=== PATIENT | male | born 1960 | race Caucasian/White ===

== ENCOUNTER → 2019-02-19 | Outpatient (CLI) | payer OTHER ==
--- NOTE | 2019-02-19 13:32 | US ---
EXAMINATION TYPE: US carotid duplex BILAT DATE OF EXAM: 02/19/2019 COMPARISON: NONE CLINICAL HISTORY: I10 HTN. Heart rate appears fast EXAM MEASUREMENTS: RIGHT: Peak Systolic Velocity (PSV) cm/sec ----- Right CCA: 103.1 ----- Right ICA: 87.8 ----- Right ECA: 162.9 ICA/CCA ratio: 0.8 RIGHT: End Diastole cm/sec ----- Right CCA: 43.5 ----- Right ICA: 38.3 ----- Right ECA: 58.4 LEFT: Peak Systolic Velocity (PSV) cm/sec ----- Left CCA: 86.3 ----- Left ICA: 91.0 ----- Left ECA: 81.1 ICA/CCA ratio: 1.1 LEFT: End Diastole cm/sec ----- Left CCA: 34.5 ----- Left ICA: 46.9 ----- Left ECA: 28.2 VERTEBRALS (direction of flow): Right Vertebral: Antegrade Left Vertebral: Antegrade Rhythm: Normal Grayscale images show moderate to severe eccentric plaque right carotid bulb level with more mild álvaro que left carotid bulb level. The velocity measurements and ratios remain within normal limits in the visualized portion of both internal carotid arteries. IMPRESSION: No hemodynamically significant stenosis is seen in either internal carotid artery. Criteria for Assigning % of Stenosis / Diameter reduction (Estimation based on the indirect measurements of the internal carotid artery velocities (ICA PSV). 1. Normal (no stenosis)=ICA PSV < 125 cm/s: ratio < 2.0: ICA EDV<40 cm/s. 2. Less than 50% stenosis=ICA PSV < 125 cm/s: ratio < 2.0: ICA EDV<40 cm/s. 3. 50 to 69% stenosis=ICA PSV of 125 to 230 cm/s: ration 2.0 ? 4.0: ICA EDV 40-100 cm/s. 4. Greater than 70% stenosis to near occlusion= ICA PSV > 230 cm/s: ratio > 4.0: ICA EDV > 100 cm/s. 5. Near occlusion= ICA PSV velocities may be low or undetectable: variable ratio and ICA EDV. 6. Total occlusion=unable to detect flow.
== END | disposition home or self-care (01) ==
LOC: RADUSWWP 12:52
PROVIDERS: ATTEND Family Medicine
DX: R09.89 Other specified symptoms and signs involving the circulatory and respiratory systems (principal); I10 Essential (primary) hypertension
CPT/HCPCS: 93880

== ENCOUNTER 2019-09-07 10:05 | Day surgery (SDC) | payer OTHER ==
[~2019-09-07 10:05] MED LIST: SODIUM CHLORIDE 0.9% 1,000 ML IV SCH
[2019-09-07 10:33] VITALS: TEMP 98
[2019-09-07 11:00] LABS: African American GFR (CKD) >90 (>60 ml/min/1.73 sqM); Anion Gap 9 mmol/L; Blood Urea Nitrogen 13 mg/dL (9-20); Calcium 9.4 mg/dL (8.4-10.2); Carbon Dioxide 24 mmol/L (22-30); Chloride 102 mmol/L (98-107); Glucose 99 mg/dL (74-99); Non-African American GFR(CKD) >90 (>60 ml/min/1.73 sqM); Potassium 4.7 mmol/L (3.5-5.1); Sodium 135 mmol/L (137-145)
[2019-09-07] MEDS ORDERED: LIDOCAINE 1% INJ 10MG/ML (20 ML MDV) ONE (11:22)
[2019-09-07] MEDS ORDERED: PROPOFOL 10 MG/ML 20 ML VIAL IV ONE (11:22)
[2019-09-07] MEDS ORDERED: GLYCOPYRROLATE 0.2 MG/ML 2 ML VIAL ONE (11:22)
[2019-09-07] MEDS ORDERED: SODIUM CHLORIDE 0.9% 50 ML IV ONE (11:33)
[2019-09-07 12:25] VITALS: RESP 16
--- NOTE | 2019-09-07 12:35 | ECHOT ---
TRANSESOPHAGEAL ECHOCARDIOGRAM FIRST PROCEDURE: Transesophageal echo. SECOND PROCEDURE: Cardioversion. INDICATION: Atypical atrial flutter. PROCEDURE NOTE: After obtaining informed consent, transesophageal echocardiogram was performed in left lateral position using an Omni plane probe. Local and IV sedation were obtained by the beer runner. FINDINGS: 1. There is no intracardiac thrombus within the left atrial appendage, left atrium, right atrium, right ventricle. 2. Mitral valve is anatomically normal. There is mild mitral regurgitation noted. 3. Interatrial septum, there is no evidence of wetw-tu-vkvfs shunt by color-flow Doppler or ntdyv-om-tsfv shunt by agitated saline contrast study. 4. Mitral valve shows mild mitral regurgitation. 5. Tricuspid valve shows mild tricuspid regurgitation. 6. Aortic valve is a 3-leaflet valve. There is no evidence of aortic stenosis or regurgitation. Aorta is free of aneurysm. 7. Right atrium and right ventricle seen within normal limits. CONCLUSION: No intracardiac thrombus. PLAN: Patient will undergo cardioversion. CARDIOVERSION NOTE: INDICATION: Atypical atrial flutter. PROCEDURE NOTE: After obtaining informed consent and making sure that the patient does not have intracardiac thrombus. The patient underwent electrical cardioversion with 200 joules of synchronized DC current. The patient converted to sinus rhythm following a single shock and remained in sinus rhythm. The plan at this stage is to stop the metoprolol that he is on and continue the amiodarone along with Eliquis. The patient will be followed up in my office in a week's time. MMODL / IJN: [id number] /
[2019-09-07 19:05] VITALS: BP 121/84; PULSE 70
[2019-09-07] MEDS ORDERED: APIXABAN 5 MG TAB PO SCH (21:00)
[2019-09-08] MEDS ORDERED: LISINOPRIL 20 MG TAB PO SCH (09:00)
[2019-09-08] MEDS ORDERED: ASPIRIN 81 MG PO SCH (09:00)
[2019-09-08] MEDS ORDERED: AMIODARONE 200 MG TAB PO SCH (09:00)
== END 2019-09-07 14:00 | disposition home or self-care (01) ==
LOC: CATHCVL 10:05
PROVIDERS: ATTEND Internal Medicine Cardiovascular Disease
DX: I48.4 Atypical atrial flutter (principal); I08.1 Rheumatic disorders of both mitral and tricuspid valves; I10 Essential (primary) hypertension; Z72.0 Tobacco use; Z79.01 Long term (current) use of anticoagulants; Z79.899 Other long term (current) drug therapy; Z82.49 Family history of ischemic heart disease and other diseases of the circulatory system
CPT/HCPCS: 93312; 93320; 93325; 92960; 80048; J2001; J2704

== ENCOUNTER 2020-01-10 17:40 | Inpatient (IN) | payer OTHER ==
[2020-01-10] MEDS ORDERED: DILTIAZEM DRIP BOLUS FROM BAG 1 MG SOLN IV ONE (17:50)
[2020-01-10] MEDS ORDERED: SODIUM CHLORIDE 0.9% 1,000 ML IV STA (17:50)
[2020-01-10 18:13] LABS: Basophils # (A) 0.1 k/uL (0-0.2); Basophils % (A) 1 %; Eosinophils # (A) 0.2 k/uL (0-0.7); Eosinophils % (A) 1 %; HCT 46.5 % (39.0-53.0); HGB 15.4 gm/dL (13.0-17.5); Lymphocytes # (A) 2.4 k/uL (1.0-4.8); Lymphocytes % (A) 20 %; MCH 34.1 pg (25.0-35.0); MCV 103.4 fL (80.0-100.0); Macrocytosis Slight; Mean Platelet Volume 7.6; Monocytes # (A) 0.9 k/uL (0-1.0); Monocytes % (A) 8 %; Neutrophils # (A) 7.9 k/uL (1.3-7.7); Neutrophils % (A) 68 %; Platelet Count 175 k/uL (150-450); RDW 12.5 % (11.5-15.5); WBC 11.7 k/uL (3.8-10.6)
--- NOTE | 2020-01-10 18:18 | ED ---
Chest Pain HPI - General Chief Complaint: Chest Pain Stated Complaint: Chest pain Time Seen by Provider: 01/10/20 17:49 Source: patient, RN notes reviewed, old records reviewed Mode of arrival: ambulatory Limitations: no limitations - History of Present Illness Initial Comments: This is a 51-year-old male DF for evaluation of chest pain left-sided chest pain feels like tightness in his chest is feeling of heart racing symptoms been going on for a few weeks to a few months. No travel history patient taking medication as directed he is on blood thinners currently. Patient has history of heart disease with stent placement has been taking all medications as prescribed MD Complaint: chest pain -: hour(s) Onset: during rest, during exertion Pain Location: substernal, left chest Pain Radiation: none Severity: moderate Severity scale (1-10): 6 Quality: tightness Consistency: constant Improves With: nothing Worsens With: nothing Context: other (Recent diagnosis of atrial fibrillation) Anginal Symptoms: dyspnea Other Symptoms: palpitations Treatments Prior to Arrival: none - Related Data Home Medications Medication Instructions Recorded Confirmed Lisinopril 40 mg PO DAILY 08/01/14 01/10/20 Apixaban [Eliquis] 5 mg PO BID 09/07/19 01/10/20 Atorvastatin [Lipitor] 40 mg PO DAILY 01/10/20 01/10/20 Metoprolol Tartrate [Lopressor] 50 mg PO BID 01/10/20 01/10/20 Allergies Allergy/AdvReac Type Severity Reaction Status Date / Time Qwultmm-Hkz-Gfg Reductase AdvReac MUSCLE Verified 01/10/20 17:47 Inhibitor ACHES Review of Systems ROS Statement: Those systems with pertinent positive or pertinent negative responses have been documented in the HPI. ROS Other: All systems not noted in ROS Statement are negative. EKG Findings - EKG Comments: EKG Findings:: EKG shows atrial flutter of 97 QRS 86, QTc 469 Past Medical History Past Medical History: Atrial Fibrillation, Coronary Artery Disease (CAD), Hypertension Additional Past Medical History / Comment(s): HX OF COLON POLYPS, History of Any Multi-Drug Resistant Organisms: None Reported Past Surgical History: Heart Catheterization With Stent Additional Past Surgical History / Comment(s): STENT X2 Past Anesthesia/Blood Transfusion Reactions: No Reported Reaction Date of Last Stent Placement:: 5 yrs ago Past Psychological History: No Psychological Hx Reported Smoking Status: Current every day smoker Past Alcohol Use History: Daily Past Drug Use History: Marijuana - Past Family History Mother Family Medical History: Cancer Brother(s) Family Medical History: Cancer General Exam Limitations: no limitations General appearance: alert, in no apparent distress, anxious Head exam: Present: atraumatic, normocephalic, normal inspection Eye exam: Present: normal appearance, PERRL, EOMI. Absent: scleral icterus, conjunctival injection, periorbital swelling ENT exam: Present: normal exam, mucous membranes moist Neck exam: Present: normal inspection. Absent: tenderness, meningismus, lymphadenopathy Respiratory exam: Present: normal lung sounds bilaterally. Absent: respiratory distress, wheezes, rales, rhonchi, stridor Cardiovascular Exam: Present: tachycardia, irregular rhythm, normal heart sounds. Absent: systolic murmur, diastolic murmur, rubs, gallop, clicks GI/Abdominal exam: Present: soft, normal bowel sounds. Absent: distended, tenderness, guarding, rebound, rigid Extremities exam: Present: normal inspection, full ROM, normal capillary refill. Absent: tenderness, pedal edema, joint swelling, calf tenderness Back exam: Present: normal inspection Neurological exam: Present: alert, oriented X3, CN II-XII intact Psychiatric exam: Present: normal affect, normal mood Skin exam: Present: warm, dry, intact, normal color. Absent: rash Course Vital Signs 01/10/20 01/10/20 01/10/20 17:44 18:30 19:00 Temperature 97.9 F Pulse Rate 137 H 88 71 Respiratory 18 17 16 Rate Blood Pressure 160/90 147/85 147/85 O2 Sat by Pulse 98 98 98 Oximetry 01/10/20 19:30 Temperature Pulse Rate 71 Respiratory 16 Rate Blood Pressure 145/97 O2 Sat by Pulse 99 Oximetry - Reevaluation(s) Reevaluation #1: 01/10/20 18:25 Medical records reviewed Reevaluation #2: 01/10/20 19:59 Patient has chest pain though improved heart rate is improved - Consultations Consultation #1: Spoke with PMH were agreeable for admission Chest Pain MDM - MDM 51 female DF for evaluation patient with a flutter, a trip for which with RVR and chest pain elevated troponin component will admit for cardiac evaluation. Patient is on anticoagulation, Eliquis Critical Care Time Critical Care Time: Yes Total Critical Care Time: 31 Disposition Clinical Impression: PSVT (paroxysmal supraventricular tachycardia), Chest pain, Acute non-ST elevation myocardial infarction (NSTEMI), Atrial flutter Disposition: ADMITTED IP TO THIS HOSP Condition: Serious Is patient prescribed a controlled substance at d/c from ED?: No Referrals: Julio Cesar Mccollum DO [Primary Care Provider] - 1-2 days
[2020-01-10 18:30] LABS: ALT 32 U/L (4-49); AST 36 U/L (17-59); African American GFR (CKD) >90 (>60 ml/min/1.73 sqM); Albumin 4.4 g/dL (3.5-5.0); Alkaline Phosphatase 90 U/L (38-126); Anion Gap 10 mmol/L; Blood Urea Nitrogen 10 mg/dL (9-20); Calcium 9.5 mg/dL (8.4-10.2); Carbon Dioxide 25 mmol/L (22-30); Chloride 97 mmol/L (98-107); Glucose 105 mg/dL (74-99); Magnesium 1.7 mg/dL (1.6-2.3); Non-African American GFR(CKD) >90 (>60 ml/min/1.73 sqM); Potassium 3.8 mmol/L (3.5-5.1); Sodium 132 mmol/L (137-145); Total Bilirubin 0.6 mg/dL (0.2-1.3); Total Protein 6.9 g/dL (6.3-8.2)
[2020-01-10] MEDS: DILTIAZEM 125 MG in SODIUM CHLORIDE 0.9% 100 ML IV SCH (18:30)
[2020-01-10 18:31] LABS: Partial Thromboplastin Time 25.2 sec (22.0-30.0); Prothrombin Time 10.1 sec (9.0-12.0)
--- NOTE | 2020-01-10 19:17 | XR ---
EXAMINATION TYPE: XR chest 2V DATE OF EXAM: 01/10/2020 COMPARISON: 08/01/2014 INDICATION: Chest pain TECHNIQUE: Frontal and lateral views of the chest are obtained. FINDINGS: The heart size is normal. The pulmonary vasculature is normal. The lungs are clear. IMPRESSION: 1. No acute pulmonary process.
[2020-01-10] MEDS ORDERED: NITROGLYCERIN SL TABS 0.4 MG TAB SUBLINGUAL PRN (19:56)
[2020-01-10] MEDS ORDERED: ASPIRIN 81 MG PO STA (19:56)
[2020-01-10] MEDS: METOPROLOL TARTRATE 50 MG TAB PO SCH (20:45)
[2020-01-11 06:39] LABS: Cholesterol 101 mg/dL (<200); HDL Cholesterol 54 mg/dL (40-60); LDL Cholesterol,Calculated 34 mg/dL (0-99); Triglycerides 63 mg/dL (<150)
[2020-01-11] MEDS ORDERED: ASPIRIN 325 MG TAB PO STA (07:58)
[2020-01-11] MEDS ORDERED: ALPRAZolam 0.5 MG TAB PO PRN (07:58)
[2020-01-11] MEDS ORDERED: NITROGLYCERIN SL TABS 0.4 MG TAB SUBLINGUAL PRN (07:58)
[2020-01-11] MEDS ORDERED: SODIUM CHLORIDE 0.9% 1,000 ML in EMPTY BAG 1 BAG IV ONE (07:58)
[2020-01-11] MEDS ORDERED: ATORVASTATIN 80 MG TAB PO STA (07:58)
[2020-01-11] MEDS ORDERED: ALPRAZolam 0.25 MG TAB PO PRN (07:58)
[2020-01-11] MEDS: METOPROLOL TARTRATE 50 MG TAB PO SCH ×2 (08:12→20:14)
[2020-01-11] MEDS: LISINOPRIL 20 MG TAB PO SCH (08:12)
[2020-01-11] MEDS ORDERED: ASPIRIN 325 MG TAB PO SCH (09:00)
--- NOTE | 2020-01-11 10:22 | CONS ---
CONSULTATION Mr. Ball is a 59-year-old male who is followed on a regular basis by Dr. Gimenez, has a history of coronary artery disease and history of atrial flutter, who presented with symptoms of chest discomfort. He has underwent stenting by Dr. Dena Soria in 2006 for the proximal circumflex and diagonal branch. He was evaluated again by Dr. Gimenez in September because of atrial flutter and underwent TASHA guided cardioversion at that time. His transesophageal echocardiogram revealed mild mitral and tricuspid regurgitation. Apparently according to the patient, he went back in atrial flutter or shortly after. He does not feel his palpitation but he presented with an episode of chest discomfort that occurred yesterday at rest. It was not associated with any dizziness or syncope or change in his breathing. He denies any PND, orthopnea, or peripheral edema. He has no history of congestive heart failure. His coronary risk factors remarkable for history of chronic tobacco use, hyperlipidemia, hypertension, he is nondiabetic. MEDICATIONS: Include Eliquis 5 mg twice a day, Lipitor 40 mg daily, lisinopril 40 mg daily, metoprolol tartrate 50 mg twice a day. Recently he has been feeling strange in the chest, but is not clear palpitation. REVIEW OF SYSTEMS: RESPIRATORY SYSTEMA: He denies any recent wheezing or cough. No history of obstructive lung disease. GI SYSTEM: He denies any GI bleeding. No peptic ulcer disease. SYSTEM: No dysuria or hematuria. NERVOUS SYSTEM: No stroke or seizure. PHYSICAL EXAMINATION: A 59-year-old male, alert, oriented, in no apparent distress. Blood pressure 125/70 with a heart rate in the 70s. HEAD: Normocephalic eyes sclerae nonicteric neck good upstroke no bruit. No jugular venous distention. LUNGS: Clear to auscultation heart irregular regular S1, S2. No S3 with systolic murmur no diastolic murmur no rub. ABDOMEN: Soft nontender positive bowel sounds no organomegaly. EXTREMITIES: No edema intact pulses. LAB DATA: Lab data revealed troponin 0.325, 0.836 and 0.821. Cholesterol 101, LDL of 54, BUN and creatinine of 10 and 0.72. Hemoglobin of 15.4, white blood cell of 175. EKG revealed atrial flutter, rate of [address]-T wave changes chest x-ray shows no acute infiltrate. IMPRESSION: 1. Probable non ST-segment elevation myocardial infarction. 2. Chest discomfort with elevation of troponin, consistent with non ST-segment elevation myocardial infarction. Two atrial flutter, persistent. 3. History of coronary artery disease. 4. History of chronic tobacco use. 5. Chronic alcohol intake. 6. History of hypertension. 7. Hyperlipidemia. RECOMMENDATION: I have discussed with the patient the importance of smoking and alcohol cessation. He took his troponin his and Eliquis last dose yesterday. He will be tentatively scheduled to undergo cardiac catheterization by Dr. Gimenez tomorrow. I will obtain echocardiogram with Doppler. The patient ate a rub with systolic. Depending on the results of his cardiac catheterization and if there is no need for revascularization, patient will be a candidate to undergo ablation for his atrial flutter. Those findings and recommendation were discussed with the patient and he is full understanding and agreement. Thank you for this consult. We will follow with you. EILEEN / YESSIN: [id number] /
[2020-01-11] MEDS: SODIUM CHLORIDE 0.9% 1,000 ML IV SCH ×2 (11:20→23:59)
--- NOTE | 2020-01-11 11:49 | ECHOF ---
Referral Reason:elevTrop MEASUREMENTS -------- HEIGHT: 180.3 cm WEIGHT: 82.1 kg BP: 125/73 RVIDd: 2.6 cm (< 3.3) IVSd: 1.0 cm (0.6 - 1.1) LVIDd: 4.3 cm (3.9 - 5.3) LVPWd: 1.2 cm (0.6 - 1.1) IVSs: 1.6 cm LVIDs: 3.2 cm LVPWs: 1.3 cm LAESV Index (A-L): 25.33 ml/m Ao Diam: 2.8 cm (2.0 - 3.7) AV Cusp: 1.5 cm (1.5 - 2.6) MV EXCURSION: 24.642 mm (> 18.000) MV EF SLOPE: 179 mm/s (70 - 150) EPSS: 0.7 cm RAP: 5.00 mmHg RVSP: 27.77 mmHg FINDINGS -------- The rhythm appears to be atrial flutter. This was a technically good study. The left ventricular size is normal. Left ventricular wall thickness is normal. Overall left vent ricular systolic function is low-normal with, an EF between 50 - 55 %. Basal inferior LV wall motio n is hypokinetic. The right ventricle is normal in size. The left atrial size is normal. Normal LA size by volume 22+/-6 ml/m2. The right atrial size is normal. Interatrial and interventricular septum intact. Aortic valve is trileaflet and is mildly thickened. Can't exclude possible Bicuspid Aov. The mitral valve is normal. Mild mitral regurgitation is present. The tricuspid valve appears structurally normal. Trace tricuspid regurgitation present. Right jax tricular systolic pressure is normal at < 35 mmHg. There is no pulmonic regurgitation present. The aortic root size is normal. Normal inferior vena cava with normal inspiratory collapse consistent with estimated right atrial pre ssure of 5 mmHg. There is no pericardial effusion. CONCLUSIONS -------- 1. The rhythm appears to be atrial flutter. 2. This was a technically good study. 3. The left ventricular size is normal. 4. Left ventricular wall thickness is normal. 5. Overall left ventricular systolic function is low-normal with, an EF between 50 - 55 %. 6. Basal inferior LV wall motion is hypokinetic. 7. The right ventricle is normal in size. 8. The left atrial size is normal. 9. Normal LA size by volume 22+/-6 ml/m2. 10. The right atrial size is normal. 11. Interatrial and interventricular septum intact. 12. Aortic valve is trileaflet and is mildly thickened. 13. Can't exclude possible Bicuspid Aov. 14. The mitral valve is normal. 15. Mild mitral regurgitation is present. 16. The tricuspid valve appears structurally normal. 17. Trace tricuspid regurgitation present. 18. Right ventricular systolic pressure is normal at < 35 mmHg. 19. There is no pulmonic regurgitation present. 20. The aortic root size is normal. 21. Normal inferior vena cava with normal inspiratory collapse consistent with estimated right atrial pressure of 5 mmHg. 22. There is no pericardial effusion. DIAMOND WHEEL MOLDER: Юлия Hunt RDCS
--- NOTE | 2020-01-11 11:49 | P.HPIM ---
History of Present Illness 59-year-old the male with known history of atrial fibrillation came in with complaints of chest pain found to be in atrial fibrillation. With rapid and regular rate patient can use to drink about 4-5 beers a day continuous smoke 1 p ack of cigarettes per day patient is on Eliquis Atrial fibrillation patient had a normal ejection fraction the past patient has mildly low sodium because of the be potomania. Patient had mild mitral regurgitation with the that was done earlier this year. Patient denied any dizziness was having palpitations and orthopnea proximal nocturnal dyspnea the did have some shortness of breath with resolved at this time patient is presently in atrial flutter with heart rate ranging anywhere from 60 to 130. Patient had mildly elevated troponins because of which cardiac cardiology is recommending cardiac catheterization tomorrow. Review of Systems REVIEW OF SYSTEMS: CONSTITUTIONAL: No fever, no malaise, no fatigue. HEENT: No recent visual problems or hearing problems. Denied any sore throat. CARDIOVASCULAR: As mentioned in HPI. PULMONARY: No shortness of breath, no cough, no hemoptysis. GASTROINTESTINAL: No diarrhea, no nausea, no vomiting, no abdominal pain. NEUROLOGICAL: No headaches, no weakness, no numbness. HEMATOLOGICAL: Denies any bleeding or petechiae. GENITOURINARY: Denies any burning micturition, frequency, or urgency. MUSCULOSKELETAL/RHEUMATOLOGICAL: Denies any joint pain, swelling, or any muscle pain. ENDOCRINE: Denies any polyuria or polydipsia. The rest of the 14-point review of systems is negative. Past Medical History Past Medical History: Atrial Fibrillation, Coronary Artery Disease (CAD), Hypertension Additional Past Medical History / Comment(s): HX OF COLON POLYPS, History of Any Multi-Drug Resistant Organisms: None Reported Past Surgical History: Heart Catheterization With Stent Additional Past Surgical History / Comment(s): STENT X2 Past Anesthesia/Blood Transfusion Reactions: No Reported Reaction Date of Last Stent Placement:: 5 yrs ago Past Psychological History: No Psychological Hx Reported Smoking Status: Current every day smoker Past Alcohol Use History: Daily Additional Past Alcohol Use History / Comment(s): STATES SMOKE 1PPD Past Drug Use History: Marijuana Additional Drug Use History / Comment(s): INSTRUCTED TO HOLD 24 HRS PRIOR TO PROCEDURE - Past Family History Mother Family Medical History: Cancer Brother(s) Family Medical History: Cancer Medications and Allergies Home Medications Medication Instructions Recorded Confirmed Type Lisinopril 40 mg PO DAILY 08/01/14 01/10/20 History Apixaban [Eliquis] 5 mg PO BID 09/07/19 01/10/20 History Atorvastatin [Lipitor] 40 mg PO DAILY 01/10/20 01/10/20 History Metoprolol Tartrate [Lopressor] 50 mg PO BID 01/10/20 01/10/20 History Allergies Allergy/AdvReac Type Severity Reaction Status Date / Time Ocykkmr-Xij-Eqy Reductase AdvReac MUSCLE Verified 01/10/20 17:47 Inhibitor ACHES Physical Exam Vitals: Vital Signs Temp Pulse Pulse Resp BP BP Pulse Ox 01/11/20 08:15 98.7 F 83 16 144/81 98 01/11/20 03:53 98.1 F 71 16 125/73 96 01/11/20 00:02 97.9 F 70 18 144/78 97 01/10/20 20:30 98.1 F 70 18 159/84 96 01/10/20 19:30 71 16 145/97 99 01/10/20 19:00 71 16 147/85 98 01/10/20 18:30 88 17 147/85 98 01/10/20 17:44 97.9 F 137 H 18 160/90 98 Intake and Output 01/10/20 01/11/20 01/11/20 22:59 06:59 14:59 Intake Total 323.833 Output Total 200 Balance -200 323.833 Intake: Intake, IV Titration 83.833 Amount Diltiazem 125 mg In 83.833 Sodium Chloride 0.9% 100 ml @ 5 MG/HR 5 mls/hr IV .Q24H [facility] Rx#:[id number] Oral 240 Output: Urine 200 Other: Voiding Method Toilet Toilet # Voids 1 1 Weight 81.647 kg 82.5 kg PHYSICAL EXAMINATION: GENERAL: The patient is alert and oriented x3, not in any acute distress. Well developed, well nourished. HEENT: Pupils are round and equally reacting to light. EOMI. No scleral icterus. No conjunctival pallor. Normocephalic, atraumatic. No pharyngeal erythema. No thyromegaly. CARDIOVASCULAR: S1 and S2 present. No murmurs, rubs, or gallops. regularly irregular rhythm PULMONARY: Chest is clear to auscultation, no wheezing or crackles. ABDOMEN: Soft, nontender, nondistended, normoactive bowel sounds. No palpable organomegaly. MUSCULOSKELETAL: No joint swelling or deformity. EXTREMITIES: No cyanosis, clubbing, or pedal edema. NEUROLOGICAL: Gross neurological examination did not reveal any focal deficits. SKIN: No rashes. Results CBC & Chem 7: 01/10/20 18:03 01/10/20 18:03 Labs: Abnormal Lab Results - Last 24 Hours (Table) 01/10/20 01/10/20 01/10/20 Range/Units 18:03 18:03 18:03 WBC 11.7 H (3.8-10.6) k/uL MCV 103.4 H (80.0-100.0) fL Neutrophils # 7.9 H (1.3-7.7) k/uL Sodium 132 L (137-145) mmol/L Chloride 97 L (98-107) mmol/L Glucose 105 H (74-99) mg/dL Troponin I 0.325 H* (0.000-0.034) ng/mL 01/10/20 01/11/20 Range/Units 23:10 05:49 WBC (3.8-10.6) k/uL MCV (80.0-100.0) fL Neutrophils # (1.3-7.7) k/uL Sodium (137-145) mmol/L Chloride (98-107) mmol/L Glucose (74-99) mg/dL Troponin I 0.836 H* 0.821 H* (0.000-0.034) ng/mL Assessment and Plan Plan: -Atrial fibrillation with rapid and chlorate there is no evidence of sepsis at this time counseling regarding alcohol cessation was provided and patient is presently on Cardizem patient was resumed on metoprolol cardiology evaluated the patient patient will be resumed on his anticoagulation -Mildly elevated troponins probably secondary to atrial fibrillation but hand spring former recommending cardiac catheterization to rule out any coronary artery disease did repeat echocardiogram is being obtained. -Chest pain, non-ST elevation myocardial infarction cannot be ruled out patient will undergo cardiac catheterization as mentioned above tomorrow continue with anticoagulation -Alcohol abuse: Counseling was provided and patient doesn't have any withdrawals at this time will be monitored for that -Hypertension -Hyperlipidemia Clinical abuse: Counseling was provided -Hyponatremia: Secondary to "christie patient will be started on IV fluids -Elevated MCV secondary to chronic alcoholism -Leukocytosis reactive in nature without any evidence of infection
[2020-01-11] MEDS: DILTIAZEM 125 MG in SODIUM CHLORIDE 0.9% 100 ML IV SCH (18:20)
[2020-01-12] MEDS: METOPROLOL TARTRATE 50 MG TAB PO SCH ×4 (04:16→20:47)
[2020-01-12] MEDS ORDERED: ASPIRIN 325 MG TAB PO ONE (06:00)
[2020-01-12 07:43] LABS: African American GFR (CKD) >90 (>60 ml/min/1.73 sqM); Anion Gap 3 mmol/L; Blood Urea Nitrogen 9 mg/dL (9-20); Calcium 8.4 mg/dL (8.4-10.2); Carbon Dioxide 25 mmol/L (22-30); Chloride 104 mmol/L (98-107); Glucose 94 mg/dL (74-99); Non-African American GFR(CKD) >90 (>60 ml/min/1.73 sqM); Potassium 4.2 mmol/L (3.5-5.1); Sodium 132 mmol/L (137-145)
[2020-01-12] MEDS: LISINOPRIL 20 MG TAB PO SCH (08:04)
[2020-01-12] MEDS: ATORVASTATIN 40 MG TAB PO SCH (08:04)
[2020-01-12] MEDS: SODIUM CHLORIDE 0.9% 1,000 ML IV SCH (08:07)
--- NOTE | 2020-01-12 09:59 | PN ---
PROGRESS NOTE Mr. Ball is a 59-year-old male with a history of atrial flutter, status post cardioversion with recurrent arrhythmia, who presented with symptoms of chest discomfort, had evidence of non ST-segment elevation myocardial infarction, has underwent stenting by Dr. Soria in 2006. He is feeling well this morning. He is denying any chest pain. He denies any dizziness, palpitation. He denies any nausea or vomiting. He denies any cough. He continues to be on aspirin once a day. His anticoagulation is on hold. He is on Lipitor 40 mg daily, lisinopril 40 mg daily, metoprolol tartrate 50 mg 3 times a day. PHYSICAL EXAMINATION: Blood pressure 140/70 with a heart rate in the 60s. LUNGS: Clear. HEART: Irregular, regular, S1, S2. No S3. No rub. ABDOMEN: Soft, nontender. EXTREMITIES: No edema. LAB DATA: Revealed BUN and creatinine 9 and 0.73. His peak troponin 0.836. His echocardiogram performed yesterday showed an ejection fraction of 50% to 55% with mild mitral regurgitation. IMPRESSION: 1. Non ST-segment elevation myocardial infarction. 2. Atrial flutter. 3. History of coronary artery disease, status post stenting. 4. History of chronic tobacco use. 5. Chronic alcohol intake. 6. Hypertension. 7. Hyperlipidemia. RECOMMENDATION: Patient will proceed with cardiac catheterization tomorrow by Dr. Gimenez. Will continue to hold his anticoagulation at this time and depending on his progress, further recommendation will be made. MMODL / IJN: [id number] /
--- NOTE | 2020-01-12 11:52 | P.PN ---
Subjective 59-year-old the male with known history of atrial fibrillation came in with complaints of chest pain found to be in atrial fibrillation. With rapid and regular rate patient can use to drink about 4-5 beers a day continuous smoke 1 pack of cigarettes per day patient is on Eliquis Atrial fibrillation patient had a normal ejection fraction the past patient has mildly low sodium because of the be potomania. Patient had mild mitral regurgitation with the that was done earlier this year. Patient denied any dizziness was having palpitations and or thopnea proximal nocturnal dyspnea the did have some shortness of breath with resolved at this time patient is presently in atrial flutter with heart rate ranging anywhere from 60 to 130. Patient had mildly elevated troponins because of which cardiac cardiology is recommending cardiac catheterization tomorrow. 01/12/2020 Patient will undergo cardiac catheterization tomorrow patient is still in f lutter rate controlled off Cardizem drip. On beta braden increased dose. Patient presently doesn't have any alcohol withdrawals Constitutional: Denied any fatigue denied any fever. Cardio vascular: denied any chest pain, palpitations Gastrointestinal denied any nausea vomiting Pulmonary: Denied any shortness of breath cough Neurologic denied any new focal deficits All inpatient medications were reviewed and appropriate changes in these medications as dictated in the interval history and assessment and plan. Objective - Vital Signs Vital signs: Vital Signs Temp 97.1 F L 01/12/20 07:56 Pulse 69 01/12/20 07:56 Resp 16 01/12/20 07:56 BP 148/78 01/12/20 07:56 Pulse Ox 95 01/12/20 07:56 Intake & Output 01/11/20 01/12/20 01/12/20 18:59 06:59 18:59 Intake Total 1703.833 240 Balance 1703.833 240 Weight 81.3 kg Intake: Intake, IV Titration 983.833 Amount Diltiazem 125 mg In 83.833 Sodium Chloride 0.9% 100 ml @ 5 MG/HR 5 mls/hr IV .Q24H [facility] Rx#:[id number] Sodium Chloride 0.9% 1, 900 000 ml @ 75 mls/hr IV . [id number] [facility] Rx#:[id number] Oral 720 240 Other: Voiding Method Toilet Toilet # Voids 1 - Exam PHYSICAL EXAMINATION: GENERAL: The patient is alert and oriented x3, not in any acute distress. Well developed, well nourished. HEENT: Pupils are round and equally reacting to light. EOMI. No scleral icterus. No conjunctival pallor. Normocephalic, atraumatic. No pharyngeal erythema. No thyromegaly. CARDIOVASCULAR: S1 and S2 present. No murmurs, rubs, or gallops. regularly irregular rhythm PULMONARY: Chest is clear to auscultation, no wheezing or crackles. ABDOMEN: Soft, nontender, nondistended, normoactive bowel sounds. No palpable organomegaly. MUSCULOSKELETAL: No joint swelling or deformity. EXTREMITIES: No cyanosis, clubbing, or pedal edema. NEUROLOGICAL: Gross neurological examination did not reveal any focal deficits. SKIN: No rashes. - Labs CBC & Chem 7: 01/10/20 18:03 01/12/20 06:54 Labs: Abnormal Lab Results - Last 24 Hours (Table) 01/12/20 Range/Units 06:54 Sodium 132 L (137-145) mmol/L Assessment and Plan Plan: -Atrial fibrillation with rapid and chlorate there is no evidence of sepsis can use to be an 80 atrial flutter and history and anticoagulation rate controlled on metoprolol off Cardizem. -Mildly elevated troponins probably secondary to atrial fibrillation but sec accountant recommending cardiac catheterization to rule out any coronary artery disease did repeat echocardiogram showed normal ejection fraction -Chest pain, non-ST elevation myocardial infarction cannot be ruled out patient will undergo cardiac catheterization as mentioned above tomorrow continue with anticoagulation -Alcohol abuse: Counseling was provided and patient doesn't have any withdrawals at this time will be monitored for that -Hypertension -Hyperlipidemia Clinical abuse: Counseling was provided -Hyponatremia: Secondary to beer potomania, continue with IV fluids recheck the BMP tomorrow -Elevated MCV secondary to chronic alcoholism -Leukocytosis reactive in nature without any evidence of infection
[2020-01-13] MEDS: SODIUM CHLORIDE 0.9% 1,000 ML IV SCH ×4 (04:23→20:51)
[2020-01-13] MEDS: ATORVASTATIN 40 MG TAB PO SCH (05:14)
[2020-01-13] MEDS: LISINOPRIL 20 MG TAB PO SCH (05:14)
[2020-01-13] MEDS: ASPIRIN 81 MG PO SCH (05:14)
[2020-01-13] MEDS: METOPROLOL TARTRATE 50 MG TAB PO SCH ×3 (05:14→20:51)
[2020-01-13 07:30] LABS: African American GFR (CKD) >90 (>60 ml/min/1.73 sqM); Anion Gap 7 mmol/L; Blood Urea Nitrogen 9 mg/dL (9-20); Calcium 8.9 mg/dL (8.4-10.2); Carbon Dioxide 25 mmol/L (22-30); Chloride 102 mmol/L (98-107); Glucose 91 mg/dL (74-99); Non-African American GFR(CKD) >90 (>60 ml/min/1.73 sqM); Potassium 4.4 mmol/L (3.5-5.1); Sodium 134 mmol/L (137-145)
[2020-01-13] MEDS ORDERED: fentaNYL (PF) 50 MCG/ML 2 ML AMP IV ONE (07:35)
[2020-01-13] MEDS ORDERED: fentaNYL (PF) 50 MCG/ML 2 ML AMP ONE (07:35)
[2020-01-13] MEDS ORDERED: MIDAZOLAM 2 MG/2 ML VIAL IVP ONE (07:35)
[2020-01-13] MEDS ORDERED: LIDOCAINE 1% INJ 10MG/ML (20 ML MDV) SQ ONE (07:40)
[2020-01-13] MEDS ORDERED: IV FLUID CONTINUATION 800 ML IV ONE (07:41)
[2020-01-13] MEDS ORDERED: METOPROLOL TARTRATE 5 MG/5 ML VIAL IVP ONE ×2 (07:47→07:50)
[2020-01-13] MEDS ORDERED: BIVALIRUDIN BOLUS 250 MG/50 ML IV ONE (08:06)
[2020-01-13] MEDS ORDERED: BIVALIRUDIN 250 MG in SODIUM CHLORIDE 0.9% 50 ML IV ONE (08:07)
[2020-01-13] MEDS: DILTIAZEM 125 MG in SODIUM CHLORIDE 0.9% 100 ML IV SCH (08:08)
[2020-01-13] MEDS ORDERED: CLOPIDOGREL 75 MG TAB ONE (08:12)
[2020-01-13] MEDS ORDERED: CLOPIDOGREL 75 MG TAB PO ONE (08:16)
[2020-01-13] MEDS ORDERED: IOPAMIDOL-370 100ML BTL INJ ONE ×2 (08:17→08:28)
[2020-01-13] MEDS ORDERED: NITROGLYCERIN 1000MCG/10ML SYRINGE INTRACORON ONE (08:21)
[2020-01-13] MEDS ORDERED: NITROGLYCERIN SL TABS 0.4 MG TAB SUBLINGUAL PRN (08:36)
[2020-01-13] MEDS ORDERED: ATROPINE SULFATE 0.1 MG/ML 10ML SYRINGE IV PRN (08:36)
[2020-01-13] MEDS ORDERED: ZOLPIDEM 5 MG TAB PO PRN (08:36)
[2020-01-13] MEDS ORDERED: RX INFO: IV CONTRAST WAS GIVEN 1 EACH MISC MISCELLANE PRN (08:36)
[2020-01-13] MEDS ORDERED: MAG HYDROX/AL HYDROX/SIMETH 30 ML CUP PO PRN (08:36)
--- NOTE | 2020-01-13 09:35 | CC ---
CARDIAC CATHETERIZATION REPORT INDICATION: Unstable angina. PROCEDURE NOTE: After obtaining informed consent, left heart catheterization and coronary angiogram were performed via the right femoral artery using standard Keesha catheters. Patient tolerated the procedure well without any obvious immediate complications. A femoral angiogram was performed and Angio-Seal will be deployed for hemostasis. Patient received moderate conscious sedation. Total sedation time was 12 minutes. FINDINGS: HEMODYNAMICS: Left ventricular end-diastolic pressure is 8 to 10 mm. There is no significant gradient across the aortic valve. LEFT VENTRICULOGRAM: Left ventriculogram is not performed. ANGIOGRAPHIC DATA: LEFT MAIN CORONARY ARTERY: Left main coronary artery appears calcified but is free of significant stenosis. Divides into left anterior descending coronary artery and circumflex coronary artery. Circumflex coronary artery was previously stented and there is a 70% in-stent restenosis. The entire left coronary system appears calcified and there is diffuse disease within the circumflex coronary artery. Diagonal branch was previously stented and there is a long area of stenosis, at its worst it seems to be at 70%-80%. Right coronary artery has collaterals from the left system. It is a codominant system and there is a focal 95% stenosis at the junction of proximal to mid part. CONCLUSION: Three-vessel coronary artery disease as described above with a focal, critical stenosis involving right coronary artery, in-stent restenoses within the circumflex coronary artery and the diagonal branch. PLAN: Patient will undergo angioplasty of the right coronary artery and probably the diagonal branch and circumflex coronary artery will be tackled at a later time. MMODL / IJN: [id number] /
--- NOTE | 2020-01-13 10:50 | PTCA ---
PERCUTANEOUSTRANS CORORONARY ANGIOGRAPHY DATE OF SERVICE: 01/13/2020. PROCEDURE: PTCA and stenting of proximal and mid right coronary artery, heavily calcified vessel with 2 drug-eluting stents from right femoral approach. PERFORMED BY: Dr. Dena Soria. Moderate conscious sedation time was 31 minutes. Patient was administered Versed. Oxygen saturation, hemodynamics and EKG were monitored closely. CLINICAL INFORMATION: Mr. Ck Ball is a 59-year-old gentleman with history of smoking, hypertension, hyperlipidemia, previous stenting of the major diagonal branch and mid circumflex in 2006. Came into the hospital with chest pain, had a troponin elevation, underwent cardiac cath by Dr. Gimenez, which revealed that he had a new lesion in the RCA in the proximal portion of about 95% with heavy calcification and a tortuous segment. He also had a restenotic lesion involving the major diagonal branch and a 50% to 60% stenosis in the circumflex stent. He was advised intervention of the RCA, which was a complex calcified procedure with a tortuosity. There was no family available. I explained to the patient before the procedure that this would be a high-risk procedure with heavy calcification. PROCEDURE NOTE: The existing 6-Lithuanian introducer was used to perform the procedure. I used a standard right Keesha guide catheter of 6-Lithuanian caliber to cannulate the right coronary artery and a run-through wire to cross the lesion. I pre-dilated the lesion with a 2.5 caliber 20 mm long NC Trek balloon with a 12 atmospheres. After this, I deployed a 3.25 caliber, 23 mm long Xience stent distally and another 8 mm long 3.25 caliber Xience stent proximal to the previous stent. Both were deployed at nearly 14-15 atmospheres. Patient had no chest discomfort or EKG changes. He remained in atrial flutter with variable block. Excellent angiographic result was achieved without complication. The sheath was taken out and Angio-Seal device used to secure hemostasis. Results were discussed with the patient. There was no family members available. Excellent angiographic result without complication was noted. The patient was sent to the room in a stable condition. MMODL / IJN: [id number] /
--- NOTE | 2020-01-13 12:21 | P.PN ---
Subjective 59-year-old the male with known history of atrial fibrillation came in with complaints of chest pain found to be in atrial fibrillation. With rapid and regular rate patient can use to drink about 4-5 beers a day continuous smoke 1 pack of cigarettes per day patient is on Eliquis Atrial fibrillation patient had a normal ejection fraction the past patient has mildly low sodium because of the be potomania. Patient had mild mitral regurgitation with the that was done earlier this year. Patient denied any dizziness was having palpitations and or thopnea proximal nocturnal dyspnea the did have some shortness of breath with resolved at this time patient is presently in atrial flutter with heart rate ranging anywhere from 60 to 130. Patient had mildly elevated troponins because of which cardiac cardiology is recommending cardiac catheterization tomorrow. 01/12/2020 Patient will undergo cardiac catheterization tomorrow patient is still in f lutter rate controlled off Cardizem drip. On beta braden increased dose. Patient presently doesn't have any alcohol withdrawals 01/13/2020 She received 2 drug-eluting stents to proximal and mid RCA. Presently denied any chest pain Constitutional: Denied any fatigue denied any fever. Cardio vascular: denied any chest pain, palpitations Gastrointestinal denied any nausea vomiting Pulmonary: Denied any shortness of breath cough Neurologic denied any new focal deficits All inpatient medications were reviewed and appropriate changes in these medications as dictated in the interval history and assessment and plan. Objective - Vital Signs Vital signs: Vital Signs Temp 97.8 F 01/13/20 04:00 Pulse 70 01/13/20 11:21 Resp 18 01/13/20 08:51 BP 135/88 01/13/20 11:21 Pulse Ox 97 01/13/20 08:51 Intake & Output 01/12/20 01/13/20 01/13/20 18:59 06:59 18:59 Intake Total 480 127 Output Total 120 900 Balance 663 -120 -043 Weight 78.7 kg Intake: IV 127 Oral 480 0 Output: Urine 120 900 Other: Voiding Method Toilet Toilet # Voids 3 1 1 - Exam PHYSICAL EXAMINATION: GENERAL: The patient is alert and oriented x3, not in any acute distress. Well developed, well nourished. HEENT: Pupils are round and equally reacting to light. EOMI. No scleral icterus. No conjunctival pallor. Normocephalic, atraumatic. No pharyngeal erythema. No thyromegaly. CARDIOVASCULAR: S1 and S2 present. No murmurs, rubs, or gallops. regularly irregular rhythm PULMONARY: Chest is clear to auscultation, no wheezing or crackles. ABDOMEN: Soft, nontender, nondistended, normoactive bowel sounds. No palpable organomegaly. MUSCULOSKELETAL: No joint swelling or deformity. EXTREMITIES: No cyanosis, clubbing, or pedal edema. NEUROLOGICAL: Gross neurological examination did not reveal any focal deficits. SKIN: No rashes. - Labs CBC & Chem 7: 01/10/20 18:03 01/13/20 06:36 Labs: Abnormal Lab Results - Last 24 Hours (Table) 01/13/20 Range/Units 06:36 Sodium 134 L (137-145) mmol/L Assessment and Plan Plan: -Atrial fibrillationpresently atrial flutter controlled heart rate patient is on metoprolol. -acute non-ST elevation microinfarction patient is status post cardiac catheterization and stenting of RCA -Alcohol abuse: Counseling was provided and patient doesn't have any withdrawals at this time will be monitored for that -Hypertension -Hyperlipidemia alcohol abuse: Counseling was provided -Hyponatremia: Secondary to beer potomania, improving -Elevated MCV secondary to chronic alcoholism -Leukocytosis reactive in nature without any evidence of infection
[2020-01-13 14:52] VITALS: BMI 24.2
[2020-01-13] MEDS: APIXABAN 5 MG TAB PO SCH (20:51)
[2020-01-14 04:56] VITALS: PULSE 74
[2020-01-14] MEDS: METOPROLOL TARTRATE 50 MG TAB PO SCH (06:31)
[2020-01-14] MEDS: SODIUM CHLORIDE 0.9% 1,000 ML IV SCH (06:33)
[2020-01-14 07:03] LABS: Basophils % (A) 0 %; Eosinophils # (A) 0.1 k/uL (0-0.7); Eosinophils % (A) 2 %; HCT 45.9 % (39.0-53.0); HGB 15.8 gm/dL (13.0-17.5); Lymphocytes % (A) 15 %; MCH 36.4 pg (25.0-35.0); MCHC 34.3 g/dL (31.0-37.0); Macrocytosis Slight; Mean Platelet Volume 7.6; Monocytes # (A) 0.5 k/uL (0-1.0); Monocytes % (A) 8 %; Neutrophils # (A) 4.8 k/uL (1.3-7.7); Neutrophils % (A) 73 %; Platelet Count 149 k/uL (150-450); RBC 4.33 m/uL (4.30-5.90); RDW 12.8 % (11.5-15.5); WBC 6.6 k/uL (3.8-10.6)
[2020-01-14 07:16] LABS: African American GFR (CKD) >90 (>60 ml/min/1.73 sqM); Anion Gap 6 mmol/L; Blood Urea Nitrogen 13 mg/dL (9-20); Calcium 8.6 mg/dL (8.4-10.2); Carbon Dioxide 25 mmol/L (22-30); Chloride 101 mmol/L (98-107); Glucose 85 mg/dL (74-99); Non-African American GFR(CKD) >90 (>60 ml/min/1.73 sqM); Potassium 4.3 mmol/L (3.5-5.1); Sodium 132 mmol/L (137-145)
[2020-01-14 08:35] VITALS: BP 108/67; RESP 12; TEMP 98.6
[2020-01-14] MEDS: DILTIAZEM 125 MG in SODIUM CHLORIDE 0.9% 100 ML IV SCH (08:36)
[2020-01-14] MEDS: APIXABAN 5 MG TAB PO SCH (08:37)
[2020-01-14] MEDS: ASPIRIN 81 MG PO SCH (08:37)
[2020-01-14] MEDS: LISINOPRIL 20 MG TAB PO SCH (08:37)
[2020-01-14] MEDS ORDERED: CLOPIDOGREL 75 MG TAB PO SCH (09:00)
--- NOTE | 2020-01-14 10:59 | P.PN ---
Subjective 59-year-old the male with known history of atrial fibrillation came in with complaints of chest pain found to be in atrial fibrillation. With rapid and regular rate patient can use to drink about 4-5 beers a day continuous smoke 1 pack of cigarettes per day patient is on Eliquis Atrial fibrillation patient had a normal ejection fraction the past patient has mildly low sodium because of the be potomania. Patient had mild mitral regurgitation with the that was done earlier this year. Patient denied any dizziness was having palpitations and or thopnea proximal nocturnal dyspnea the did have some shortness of breath with resolved at this time patient is presently in atrial flutter with heart rate ranging anywhere from 60 to 130. Patient had mildly elevated troponins because of which cardiac cardiology is recommending cardiac catheterization tomorrow. 01/12/2020 Patient will undergo cardiac catheterization tomorrow patient is still in f lutter rate controlled off Cardizem drip. On beta braden increased dose. Patient presently doesn't have any alcohol withdrawals 01/13/2020 She received 2 drug-eluting stents to proximal and mid RCA. Presently denied any chest pain 01/14/2020 Patient heart rate went up last night because of which patient was started on Cardizem. Heart rate is better controlled and now, patient's oral metoprolol dose was increased. Patient wanted to go home probably related to stay 1 more day as his heart rate is fluctuating. But if cleared by cardiology and if his heart rate is better controlled later in the day patient will be discharged at that time. Constitutional: Denied any fatigue denied any fever. Cardio vascular: denied any chest pain, palpitations Gastrointestinal denied any nausea vomiting Pulmonary: Denied any shortness of breath cough Neurologic denied any new focal deficits All inpatient medications were reviewed and appropriate changes in these medications as dictated in the interval history and assessment and plan. Objective - Vital Signs Vital signs: Vital Signs Temp 98.6 F 01/14/20 08:29 Pulse 74 01/14/20 08:29 Resp 12 01/14/20 08:34 BP 108/67 01/14/20 08:29 Pulse Ox 100 01/14/20 08:29 Intake & Output 01/13/20 01/14/20 01/14/20 18:59 06:59 18:59 Intake Total 367 320.583 Output Total 900 Balance -533 320.583 Weight 78.7 kg 87.9 kg Intake: IV 127 20 Invasive Line 1 20 Intake, IV Titration 0.583 Amount Diltiazem 125 mg In 0.583 Sodium Chloride 0.9% 100 ml @ 5 MG/HR 5 mls/hr IV .Q24H [facility] Rx#:[id number] Oral 240 300 Output: Urine 900 Other: Voiding Method Toilet Toilet Toilet # Voids 1 1 - Exam PHYSICAL EXAMINATION: GENERAL: The patient is alert and oriented x3, not in any acute distress. Well developed, well nourished. HEENT: Pupils are round and equally reacting to light. EOMI. No scleral icterus. No conjunctival pallor. Normocephalic, atraumatic. No pharyngeal erythema. No thyromegaly. CARDIOVASCULAR: S1 and S2 present. No murmurs, rubs, or gallops. regularly irregular rhythm PULMONARY: Chest is clear to auscultation, no wheezing or crackles. ABDOMEN: Soft, nontender, nondistended, normoactive bowel sounds. No palpable organomegaly. MUSCULOSKELETAL: No joint swelling or deformity. EXTREMITIES: No cyanosis, clubbing, or pedal edema. NEUROLOGICAL: Gross neurological examination did not reveal any focal deficits. SKIN: No rashes. - Labs CBC & Chem 7: 01/14/20 06:08 01/14/20 06:08 Labs: Abnormal Lab Results - Last 24 Hours (Table) 01/14/20 01/14/20 Range/Units 06:08 06:08 MCV 106.0 H (80.0-100.0) fL MCH 36.4 H (25.0-35.0) pg Plt Count 149 L (150-450) k/uL Sodium 132 L (137-145) mmol/L Assessment and Plan Plan: -Atrial fibrillationpresently atrial flutter, patient's heart rate went up again last night was started on Cardizem which is being this can you now metoprolol dose is being increased presently rate controlled now. -acute non-ST elevation microinfarction patient is status post cardiac catheterization and stenting of RCA -Alcohol abuse: Counseling was provided and patient doesn't have any withdrawals at this time will be monitored for that -Hypertension -Hyperlipidemia alcohol abuse: Counseling was provided -Hyponatremia: Secondary to beer potomania, improving -Elevated MCV secondary to chronic alcoholism -Leukocytosis reactive in nature without any evidence of infection
--- NOTE | 2020-01-14 11:14 | P.DS ---
Providers Date of admission: 01/10/20 19:58 Attending physician: Lloyd Tripp Consults: 01/10/20 19:56 Consult Physician Urgent Consulting Provider: Gurdeep Hernandez Consult Reason/Comments: elevTrop Do you want consulting provider notified?: Yes 01/13/20 08:36 Consult Physician Routine Consulting Provider: [facility] Consult Reason/Comments: Post Interventional patient Do you want consulting provider notified?: Already Contacted Primary care physician: Julio Cesar Mccollum [facility] Course: Refer to my progress note from today for further details Patient Condition at Discharge: Serious Plan - Discharge Summary New Discharge Prescriptions: New Aspirin 81 mg PO DAILY #30 chew Metoprolol Tartrate [Lopressor] 50 mg PO TID tab Clopidogrel [Plavix] 75 mg PO DAILY #30 tab Atorvastatin [Lipitor] 80 mg PO HS #30 tab Continue Lisinopril 40 mg PO DAILY Apixaban [Eliquis] 5 mg PO BID Discontinued Metoprolol Tartrate [Lopressor] 50 mg PO BID Atorvastatin [Lipitor] 40 mg PO DAILY Discharge Medication List Lisinopril 40 mg PO DAILY 08/01/14 [History] Apixaban [Eliquis] 5 mg PO BID 09/07/19 [History] Aspirin 81 mg PO DAILY #30 chew 01/14/20 [Rx] Atorvastatin [Lipitor] 80 mg PO HS #30 tab 01/14/20 [Rx] Clopidogrel [Plavix] 75 mg PO DAILY #30 tab 01/14/20 [Rx] Metoprolol Tartrate [Lopressor] 50 mg PO TID tab 01/14/20 [Rx] Follow up Appointment(s)/Referral(s): Julio Cesar Mccollum DO [Primary Care Provider] - 3 Days Ernie Gimenez MD [STAFF PHYSICIAN] - 1 Week Discharge Disposition: HOME SELF-CARE
--- NOTE | 2020-01-14 12:31 | P.PN ---
Subjective Progress Note Date: 01/14/20 This pleasant 59-year-old gentleman who follows with Dr. Gimenez in the office. He has a history of atrial flutter, status post cardioversion with recurrent arrhythmia, presented with symptoms of chest discomfort and evidence of non-ST segment elevation MT. Previously underwent stenting with Dr. Soria in 2006. He underwent cardiac catheterization yesterday by Dr. Gimenez which revealed 70% in- stent restenosis of the circumflex, 70% stenosis involving the diagonal branch and 95% stenosis involving the proximal to mid RCA. He subsequently underwent stent placement of the RCA by Dr. Quiñonez. Echocardiogram with Doppler showed an ejection fraction of 50-55% with basal inferior hypokinesis, questionable b icuspid aortic valve and mild mitral regurgitation. Patient is maintaining atrial flutter with controlled ventricular rates. He's been up ambulatory in the room without any difficulties. He is overall feeling better. Vital signs have been stable. He is currently on Eliquis, aspirin, Plavix, Lipitor, lisinopril and metoprolol tartrate. Objective - Vital Signs Vital signs: Vital Signs Temp 98.6 F 01/14/20 08:29 Pulse 74 01/14/20 08:29 Resp 12 01/14/20 08:34 BP 108/67 01/14/20 08:29 Pulse Ox 100 01/14/20 08:29 Intake & Output 01/13/20 01/14/20 01/14/20 18:59 06:59 18:59 Intake Total 367 320.583 Output Total 900 Balance -533 320.583 Weight 78.7 kg 87.9 kg Intake: IV 127 20 Invasive Line 1 20 Intake, IV Titration 0.583 Amount Diltiazem 125 mg In 0.583 Sodium Chloride 0.9% 100 ml @ 5 MG/HR 5 mls/hr IV .Q24H [facility] Rx#:[id number] Oral 240 300 Output: Urine 900 Other: Voiding Method Toilet Toilet Toilet # Voids 1 1 2 - Exam PHYSICAL EXAMINATION: HEENT: Head is atraumatic, normocephalic. Pupils equal, round. Neck is supple. There is no elevated jugular venous pressure. HEART EXAMINATION: Heart sounds regular, S1 and S2 normal. No murmur or gallop heard. CHEST EXAMINATION: Lungs are clear to auscultation and precussion. No chest wall tenderness is noted on palpation or with deep breathing. ABDOMEN: Soft, nontender. Bowel sounds are heard. No organomegaly noted. EXTREMITIES: 2+ peripheral pulses with no evidence of peripheral edema and no calf tenderness noted. Right femoral puncture site soft, clean, dry and intact. No evidence of ecchymosis or hematoma. NEUROLOGIC patient is awake, alert and oriented x3. . - Labs CBC & Chem 7: 01/14/20 06:08 01/14/20 06:08 Labs: Abnormal Lab Results - Last 24 Hours (Table) 01/14/20 01/14/20 Range/Units 06:08 06:08 MCV 106.0 H (80.0-100.0) fL MCH 36.4 H (25.0-35.0) pg Plt Count 149 L (150-450) k/uL Sodium 132 L (137-145) mmol/L Assessment and Plan Assessment: #1 non-ST segment elevation myocardial infarction, status post stenting of the proximal to mid RCA #2 atrial flutter, controlled ventricular rates #3 CAD #4 chronic tobacco use #5 chronic alcohol intake #6 hypertension #7 hyperlipidemia Plan: From cardiology's perspective, medications were reviewed and will continue the same. He'll be maintained on Eliquis, aspirin and Plavix for 4 weeks at which time aspirin will be discontinued. From our standpoint patient is stable for discharge home. He will follow-up in the office with Dr. Gimenez and about a week. SEARCH ENGINE OPTIMIZATION STRATEGIST note has been reviewed, I agree with a documented findings and plan of care. Patient was seen and examined.
--- NOTE | 2020-01-14 12:47 | CDI ---
Documentation Clarification Form Date: 01/14/2020 12:06:37 PM From: Luci Vail RN, CCDS Admit Date: 01/10/2020 07:58:00 PM Patient Name: Ck Ball Visit Number: [id number] Discharge Date: ATTENTION: The Clinical Documentation Specialists (CDI) and [facility] Coding Staff appreciate your assistance in clarifying documentation. Please respond to the clarification below the line at the bottom and electronically sign. The CDI & [facility] Coding staff will review the response and follow-up if needed. Please note: Queries are made part of the Legal Health Record. If you have any questions, please contact the author of this message via ITS. Dr. Ulysses Harper Atrial Fibrillation is documented in the past medical history, your H/P and subsequent progress notes. Request specificity of the atrial fibrillation if known. History/Risk Factors: Atrial Fibrillation, Coronary Artery disease, Hypertension, Atrial flutter Clinical Indicators: 51-year-old male who present to ED on 01/09 with complaints of left-sided chest pain, feeling of heart racing. Cardiology consult on 01/10 has documented history of atrial flutter with prior TASHA guided cardioversion in [facility]. EKG/telemetry: (01/09) Atrial Flutter at 97 bpm with variable AV block EKG 01/09@ 18:56: Atrial flutter with 4:1 AV conduction Inferior infarct, possibly acute AC NH EKG 01/10@ 5:25 Atrial flutter with 4:1 conduction (NST changes per cardiology) 01/10 ECHO: The rhythm appears to be atrial flutter. EF between 50-55 % Treatment: Asa po daily Lipitor 40 mg po daily Lisinopril 40 mg daily Metoprolol tartrate 50 mg tid Eliquis 5 mg po bid starting 01/12 Plavix 75 mg po daily starting 01.13 Cardiology Consults: 01/10: Non ST -segment elevation myocardial infarction. Two Atrial flutter, persistent In your professional opinion, can you please clarify the type of Atrial Fibrillation documented in your progress notes, if known? Chronic/Permanent Paroxysmal Persistent Other, please specify Unable to determine (Last Revision: November 2017) Unable to determine MTDD
[2020-01-14] MEDS ORDERED: ATORVASTATIN 80 MG TAB PO SCH (21:00)
[2020-01-15] MEDS ORDERED: LISINOPRIL 20 MG TAB PO SCH (09:00)
== END 2020-01-14 13:35 | disposition home or self-care (01) | DRG 247 ==
LOC: EC 17:40 → 3SCARD 19:58
PROVIDERS: ADMIT Hospitalist; ATTEND Hospitalist
PROC: 027035Z Dilation of Coronary Artery, One Artery with Two Drug-eluting Intraluminal Devices, Percutaneous Approach (ICD-10-PCS; principal; 2020-01-13 07:30)
PROC: 4A023N7 Measurement of Cardiac Sampling and Pressure, Left Heart, Percutaneous Approach (ICD-10-PCS; 2020-01-13 07:30)
PROC: B2111ZZ Fluoroscopy of Multiple Coronary Arteries using Low Osmolar Contrast (ICD-10-PCS; 2020-01-13 07:30)
DX: I21.4 Non-ST elevation (NSTEMI) myocardial infarction (principal); E87.1 Hypo-osmolality and hyponatremia; I47.1 Supraventricular tachycardia; I48.3 Typical atrial flutter; T82.855A Stenosis of coronary artery stent, initial encounter; D72.829 Elevated white blood cell count, unspecified; E78.5 Hyperlipidemia, unspecified; F10.20 Alcohol dependence, uncomplicated; F17.210 Nicotine dependence, cigarettes, uncomplicated; I10 Essential (primary) hypertension; I25.110 Atherosclerotic heart disease of native coronary artery with unstable angina pectoris; I48.91 Unspecified atrial fibrillation; I34.0 Nonrheumatic mitral (valve) insufficiency; Z11.59 Encounter for screening for other viral diseases; Z79.01 Long term (current) use of anticoagulants; Z79.899 Other long term (current) drug therapy; Z88.8 Allergy status to other drugs, medicaments and biological substances; Z86.010 Personal history of colon polyps; Z71.41 Alcohol abuse counseling and surveillance of alcoholic; Z71.6 Tobacco abuse counseling; Z80.9 Family history of malignant neoplasm, unspecified; Y83.8 Other surgical procedures as the cause of abnormal reaction of the patient, or of later complication, without mention of misadventure at the time of the procedure
CPT/HCPCS: 36415; 71046; 80048; 80053; 80061; 83690; 83735; 84484; 85025; 85610; 85730; 93306; 93458; 96365; 96366; 96376; 99291

== ENCOUNTER 2020-01-28 06:08 | Day surgery (SDC) | payer OTHER ==
[2020-01-27 08:58] VITALS: BMI 24.4
[~2020-01-28 06:08] MED LIST changes: +ALPRAZolam 0.25 MG TAB PO PRN; +ALPRAZolam 0.5 MG TAB PO PRN; +NITROGLYCERIN SL TABS 0.4 MG TAB SUBLINGUAL PRN; -SODIUM CHLORIDE 0.9% 1,000 ML IV SCH; +SODIUM CHLORIDE 0.9% 1,000 ML in EMPTY BAG 1 BAG IV ONE
[2020-01-28] MEDS ORDERED: SODIUM CHLORIDE 0.9% 1,000 ML IV ONE ×2 (06:25→17:00)
[2020-01-28] MEDS ORDERED: ASPIRIN 325 MG TAB PO ONE (07:00)
[2020-01-28] MEDS ORDERED: LIDOCAINE 1% INJ 10MG/ML (20 ML MDV) ONE (07:23)
[2020-01-28] MEDS ORDERED: METOPROLOL TARTRATE 5 MG/5 ML VIAL IVP ONE ×3 (07:49→07:51)
[2020-01-28] MEDS ORDERED: LIDOCAINE 1% INJ 10MG/ML (20 ML MDV) IV ONE (07:51)
[2020-01-28] MEDS ORDERED: MIDAZOLAM 2 MG/2 ML VIAL IV ONE (07:51)
[2020-01-28] MEDS ORDERED: BIVALIRUDIN BOLUS 250 MG/50 ML IV ONE (07:57)
[2020-01-28] MEDS ORDERED: BIVALIRUDIN 250 MG in SODIUM CHLORIDE 0.9% 50 ML IV ONE (07:57)
[2020-01-28] MEDS ORDERED: IOPAMIDOL-370 100ML BTL INJ ONE ×2 (08:11→08:39)
[2020-01-28] MEDS ORDERED: NITROGLYCERIN 1000MCG/10ML SYRINGE INTRACORON ONE (08:38)
[2020-01-28] MEDS ORDERED: CLOPIDOGREL 75 MG TAB ONE (08:42)
[2020-01-28] MEDS ORDERED: CLOPIDOGREL 75 MG TAB PO ONE (08:48)
[2020-01-28] MEDS ORDERED: MAG HYDROX/AL HYDROX/SIMETH 30 ML CUP PO PRN (08:55)
[2020-01-28] MEDS ORDERED: ATROPINE SULFATE 0.1 MG/ML 10ML SYRINGE IV PRN (08:55)
[2020-01-28] MEDS ORDERED: ZOLPIDEM 5 MG TAB PO PRN (08:55)
[2020-01-28] MEDS ORDERED: RX INFO: IV CONTRAST WAS GIVEN 1 EACH MISC MISCELLANE PRN (08:55)
[2020-01-28] MEDS: SODIUM CHLORIDE 0.9% 1,000 ML IV SCH (09:00)
--- NOTE | 2020-01-28 15:58 | PTCA ---
PERCUTANEOUSTRANS CORORONARY ANGIOGRAPHY PTCA AND STENTING OF MAJOR DIAGONAL BRANCH OF LAD: PERFORMED BY: Dr. Dena Soria. Moderate conscious sedation time was 57 minutes. Patient was administered Versed. Oxygen saturation, hemodynamics and EKG were monitored closely. CLINICAL INFORMATION: Mr. Ck Ball is a 59-year-old gentleman with a known history of CAD. More than 10 years ago, he had stenting of the major diagonal branch and circumflex. About 3 weeks ago, he presented with a non-ST elevation ND and had a right coronary artery lesion that was addressed with multiple drug-eluting stents with excellent result. He was advised to come back for diagonal intervention, which was the restenotic lesion as well as a new area of stenosis before the stented segment in the diagonal. The circumflex had about a 50% to 55% stenosis with brisk ROBERT-3 flow. He was brought in for the procedure electively after due discussion regarding risks, benefits, and options. PROCEDURE NOTE: Under strict aseptic precautions and local anesthesia, a 6-S[place] introducer was placed in the right femoral artery. I used a JL3.5 guide catheter to cannulate the left coronary artery. I used a Whisper wire to cross the lesion in the diagonal branch and also beyond the stent and kept it distally. Predilatation was performed with a 12 mm long NC emerge NC balloon and multiple inflations were given within the stented segment and distal and proximal to it. The proximal segment was very difficult to open even at 12 atmospheres. I then used a 2.75 caliber NC Trek balloon and with this I gave multiple inflations. I was able to open the distal lesion very well, but the proximal lesion before the stented segment was very hard to open. I went as high as 15 atmospheres. I then deployed a 2.75 caliber 8 mm Xience stent in the distal area and another 8 mm stent in the proximal area. These 2 stents covered the previous 8 mm stent and also before and after. However, the proximal stent could not be opened up completely even at high atmospheres up to 16. I then used a 3.0 caliber 8 mm NC Trek balloon and with this I gave additional inflation. There was an improvement but not complete opening. The residual stenosis is about 20% with remarkably improved angiographic appearance and flow. I discussed this with the patient and suggested that using CSI atherectomy in the stented segment is not probably joe and this will improve the flow but the restenosis rate is a little bit higher. This was explained to the patient. He received Angiomax bolus and infusion and an additional 150 mg of Plavix was given. Patient has atrial flutter and is on a combination of aspirin, Plavix and Eliquis but eventually will be only on Plavix and Eliquis. The sheath was taken out and an Angio-Seal device used to secure hemostasis and he was sent to the room in stable condition. Results were discussed with the patient. There was no family members available. The patient will have a stress test in the next month or so. Results were discussed with Dr. Gimenez. MMSTEVIE / YESSIN: [id number] /
[2020-01-28] MEDS: LISINOPRIL 20 MG TAB PO SCH (16:33)
[2020-01-28] MEDS: METOPROLOL TARTRATE 50 MG TAB PO SCH ×3 (16:33→21:10)
[2020-01-28] MEDS: ASPIRIN 81 MG PO SCH (16:33)
[2020-01-28] MEDS: CLOPIDOGREL 75 MG TAB PO SCH (17:09)
[2020-01-28] MEDS ORDERED: ATORVASTATIN 80 MG TAB PO SCH (21:00)
[2020-01-29 02:44] VITALS: RESP 16
[2020-01-29] MEDS: SODIUM CHLORIDE 0.9% 1,000 ML IV SCH (04:14)
[2020-01-29 07:47] LABS: African American GFR (CKD) >90 (>60 ml/min/1.73 sqM); Anion Gap 5 mmol/L; Blood Urea Nitrogen 9 mg/dL (9-20); Calcium 8.4 mg/dL (8.4-10.2); Carbon Dioxide 27 mmol/L (22-30); Chloride 100 mmol/L (98-107); Glucose 92 mg/dL (74-99); Non-African American GFR(CKD) >90 (>60 ml/min/1.73 sqM); Potassium 4.6 mmol/L (3.5-5.1); Sodium 132 mmol/L (137-145)
[2020-01-29 08:26] LABS: Basophils % (A) 0 %; Eosinophils # (A) 0.1 k/uL (0-0.7); Eosinophils % (A) 2 %; HCT 43.4 % (39.0-53.0); HGB 14.5 gm/dL (13.0-17.5); Lymphocytes # (A) 1.5 k/uL (1.0-4.8); Lymphocytes % (A) 20 %; MCH 35.8 pg (25.0-35.0); MCHC 33.5 g/dL (31.0-37.0); MCV 107.1 fL (80.0-100.0); Macrocytosis Moderate; Mean Platelet Volume 7.7; Monocytes # (A) 0.5 k/uL (0-1.0); Monocytes % (A) 7 %; Neutrophils # (A) 5.1 k/uL (1.3-7.7); Neutrophils % (A) 69 %; Platelet Count 162 k/uL (150-450); RBC 4.05 m/uL (4.30-5.90); RDW 12.7 % (11.5-15.5); WBC 7.5 k/uL (3.8-10.6)
[2020-01-29] MEDS: ASPIRIN 81 MG PO SCH (08:46)
[2020-01-29] MEDS: METOPROLOL TARTRATE 50 MG TAB PO SCH (08:47)
[2020-01-29] MEDS: CLOPIDOGREL 75 MG TAB PO SCH (08:47)
[2020-01-29] MEDS: LISINOPRIL 20 MG TAB PO SCH (08:47)
[2020-01-29 08:52] VITALS: BP 99/77; TEMP 98.5
[2020-01-29 10:24] VITALS: PULSE 88
--- NOTE | 2020-01-29 10:40 | P.PN ---
Subjective Progress Note Date: 01/29/20 Discharge note This is a pleasant 59-year-old gentleman with known history of coronary artery disease who follows with Dr. Franco in the office. Patient had prior stenting of the major diagonal branch and circumflex, about 3 weeks ago he presented with a non-ST elevation GA and had stenting of the RCA, he was brought back to the hospital on this occasion to undergo stenting of the diagonal. 2 stents cover the previous 8 mm stent, and also before and after, however the proximal stent could not be opened up completely. Patient was seen and examined this morning, denied any chest discomfort or difficulty in breathing. Blood pressure 100/70, with a heart rate in the 80s this morning. White blood cell count 7.5, hemoglobin 14.5, platelet count 162. Sodium 132, potassium 4.6, BUN 9, creatinine 0.7. Objective - Vital Signs Vital signs: Vital Signs Temp 98.5 F 01/29/20 08:45 Pulse 88 01/29/20 10:24 Resp 16 01/29/20 08:45 BP 99/77 01/29/20 08:45 Pulse Ox 98 01/29/20 08:45 Intake & Output 01/28/20 01/29/20 01/29/20 18:59 06:59 18:59 Intake Total 1611.7 450 480 Output Total 1300 Balance 311.7 450 480 Weight 80.4 kg 80.3 kg Intake: IV 1371.7 Sodium Chloride 0.9% 1, 550 000 ml @ 75 mls/hr IV . [id number] [facility] Rx#:[id number] Oral 240 450 480 Output: Urine 1300 Other: Voiding Method Toilet Toilet Toilet # Voids 2 1 - Exam PHYSICAL EXAMINATION: GENERAL: 59-year-old gentleman in no acute distress at the time of my examination HEENT: Head is atraumatic, normocephalic. Pupils equal, round. Sclera anicteric. Conjunctiva are clear. Mucous membranes of the mouth are moist. Neck is supple. There is no elevated jugular venous pressure. No carotid bruit is heard. HEART EXAMINATION: Heart S1 and S2 irregularly irregular CHEST EXAMINATION: Lungs are clear to auscultation and precussion. No chest wall tenderness is noted on palpation or with deep breathing. ABDOMEN: Soft, nontender. Bowel sounds are heard. No organomegaly noted. EXTREMITIES: 2+ peripheral pulses with no evidence of peripheral edema and no calf tenderness noted. Right groin soft, no evidence of any hematoma. NEUROLOGIC patient is awake, alert and oriented 3 . . - Labs CBC & Chem 7: 01/29/20 06:44 01/29/20 06:44 Labs: Abnormal Lab Results - Last 24 Hours (Table) 01/29/20 01/29/20 Range/Units 06:44 06:44 RBC 4.05 L (4.30-5.90) m/uL MCV 107.1 H (80.0-100.0) fL MCH 35.8 H (25.0-35.0) pg Sodium 132 L (137-145) mmol/L Assessment and Plan Plan: Assessment and plan #1 status post attempted PTCA and stenting of the diagonal branch #2 known history of coronary artery disease with non-Q-wave GA 3 weeks ago at which time patient underwent RCA stent #3 hypertension #4 hyperlipidemia #5 typical atrial flutter Plan Patient may be discharged home today. Follow-up appointment with Dr. Gimenez in the office post discharge. Discharge medications include Eliquis 5 mg one tablet by mouth twice a day, baby aspirin, Plavix 75 mg daily, lisinopril 40 mg daily, metoprolol 50 mg 3 times a day, and sublingual nitroglycerin as needed for chest pain. DNP note has been reviewed, I agree with a documented findings and plan of care. Patient was seen and examined.
[2020-01-29] MEDS ORDERED: APIXABAN 5 MG TAB PO SCH (18:00)
== END 2020-01-29 12:02 | disposition home or self-care (01) ==
LOC: CATHCVL 06:08 → 3SCARD 08:42 → CATHCVL 01-29 12:02
PROVIDERS: ATTEND Internal Medicine Interventional Cardiology
DX: I25.10 Atherosclerotic heart disease of native coronary artery without angina pectoris (principal); I21.4 Non-ST elevation (NSTEMI) myocardial infarction; I10 Essential (primary) hypertension; I48.3 Typical atrial flutter; E78.2 Mixed hyperlipidemia; Z82.49 Family history of ischemic heart disease and other diseases of the circulatory system; Z95.5 Presence of coronary angioplasty implant and graft; Z79.02 Long term (current) use of antithrombotics/antiplatelets; Z79.01 Long term (current) use of anticoagulants; Z79.82 Long term (current) use of aspirin; Z79.899 Other long term (current) drug therapy
CPT/HCPCS: 94760; 80048; 85025; C9600; C1769 ×4; C1760; C1887; C1725 ×4; C1894; C1874; J2250; J2001; J0583; Q9967

== ENCOUNTER 2020-04-04 13:03 | Day surgery (SDC) | payer OTHER ==
[2020-04-01 10:25] VITALS: BMI 24.4
[~2020-04-04 13:03] MED LIST changes: -ALPRAZolam 0.25 MG TAB PO PRN; -ALPRAZolam 0.5 MG TAB PO PRN; +LACTATED RINGERS 1,000 ML IV SCH; -NITROGLYCERIN SL TABS 0.4 MG TAB SUBLINGUAL PRN; +SODIUM CHLORIDE 0.9% 1,000 ML IV SCH; -SODIUM CHLORIDE 0.9% 1,000 ML in EMPTY BAG 1 BAG IV ONE
[2020-04-04] MEDS ORDERED: LIDOCAINE 1% INJ 10MG/ML (20 ML MDV) ONE ×2 (15:28→16:01)
[2020-04-04] MEDS ORDERED: PROPOFOL 10 MG/ML 20 ML VIAL IV ONE (15:28)
[2020-04-04] MEDS ORDERED: MIDAZOLAM 2 MG/2 ML VIAL ONE (15:28)
[2020-04-04] MEDS ORDERED: NEOSTIGMINE 1 MG/ML 10 ML VIAL ONE (15:28)
[2020-04-04] MEDS ORDERED: GLYCOPYRROLATE 0.2 MG/ML 2 ML VIAL ONE (15:28)
[2020-04-04] MEDS ORDERED: fentaNYL (PF) 50 MCG/ML 2 ML AMP ONE (15:28)
[2020-04-04] MEDS ORDERED: ROCURONIUM BROMIDE 10 MG/ML 5 ML VIAL IV ONE (15:28)
[2020-04-04] MEDS ORDERED: LIDOCAINE 1% INJ 10MG/ML (20 ML MDV) SQ ONE (16:04)
[2020-04-04] MEDS ORDERED: LACTATED RINGERS 1,000 ML IV ONE (16:10)
[2020-04-04] MEDS ORDERED: HEPARIN SODIUM (1,000 UNIT/ML) 1,000 UNIT in SODIUM CHLORIDE 0.9% 1,000 ML IRRIGATION ONE (16:12)
[2020-04-04] MEDS ORDERED: ACETAMINOPHEN TAB 325 MG TAB PO PRN (17:16)
[2020-04-04] MEDS ORDERED: HYDROcodone/APAP 5-325MG 1 EACH TAB PO PRN (17:16)
--- NOTE | 2020-04-04 17:22 | P.PRLE ---
RE: Ck Ball Dear Julio Cesar Ball underwent successful radiofrequency ablation for typical atrial flutter. He had no other inducible arrhythmias on and off Isuprel. We could not induce atrial fibrillation during the EP study He will continue anticoagulation with ELIQUIS and will follow-up with you and Dr. Franco as before Thank you for entrusting me with the care of the patient Warm regards Sincerely Sid Shore
[2020-04-04] MEDS ORDERED: ACETAMINOPHEN IV (For NPO) 1,000 MG/100 ML VIAL IVPB ONE (18:22)
[2020-04-04] MEDS ORDERED: ACETAMINOPHEN IV (For NPO) 1,000 MG in EMPTY BAG 1 BAG IVPB ONE (18:30)
[2020-04-04] MEDS: APIXABAN 5 MG TAB PO SCH (20:58)
[2020-04-04] MEDS: METOPROLOL TARTRATE 50 MG TAB PO SCH (20:58)
[2020-04-04] MEDS ORDERED: ATORVASTATIN 80 MG TAB PO SCH (21:00)
--- NOTE | 2020-04-05 01:51 | CE ---
CARDIAC ELECTROPHYSIOLOGY REPORT This is a 59-year-old male patient of Dr. Gimenez and Dr. Mccollum who has sustained typical atrial flutter. He was brought in for atrial flutter ablation. He has failed electrical cardioversion with recurrence. He has a rapid ventricular response. Rates are difficult to control. He is appropriately anticoagulated. Patient was brought to the EP lab in a fasting state. Written informed consent was obtained prior to the procedure. The right and left groins were prepped and draped as per protocol. Venous sheaths were placed in the right and left femoral veins and via these mapping and ablation catheters via a long sheath, intracardiac echo catheter and coronary sinus catheter placed. Later, the catheters were placed in the high right atrium, His bundle area and the right ventricle. The patient was in tachycardia at the start of the study. Cycle length of about 240 to 250 milliseconds. The tachycardia was entrained from the cavotricuspid isthmus with multiple cycle lengths and at multiple different sites. The tachycardia was entrained successfully. Concealed entrainment was noted. Following that, intracardiac echocardiography was performed. A 3D electroanatomic mapping was performed. There was no clot in the right atrial appendage. No thrombus in the left atrial appendage. An RF ablation was performed, 40 chaidez for 20 seconds and the atrial flutter was terminated. Following that, the rest of the ablation was completed in sinus rhythm. A complete RF line of block was made. Thereafter with pacing maneuvers and differential pacing, bidirectional block was proven. Isthmus conduction time was greater than 150 milliseconds. In sinus rhythm, an EP study was performed both on and off Isuprel. Sinus cycle length was 1146 milliseconds, VA interval 144 milliseconds, QRS 86 milliseconds and QT 380 milliseconds. AH interval 82 milliseconds, HV interval 45 milliseconds. Sinus node recovery times of 600, 500 and 400 milliseconds were 1539, 1606, and 1633 milliseconds. Currently the sinus node recovery times were at the upper limits of normal. AV node Wenckebach block 380 milliseconds, VA Wenckebach block greater than 300 milliseconds. VA interval in sinus rhythm was 140 milliseconds. Isuprel was started and pacing maneuvers and burst stimulation was performed and straight pacing was performed from HRA and from the coronary sinus and no atrial fibrillation induced. AV node Wenckebach block was 290 milliseconds and with high-dose Isuprel it 220 milliseconds. All catheters were then removed and patient was transferred back to telemetry. RESULT: Diagnostic EP study revealing typical atrial flutter. Radiofrequency ablation was performed and the flutter was terminated and a complete RF line of block was made with proven bidirectional block with differential pacing. PLAN: Continue cardiac medications and continue Eliquis. Intracardiac echocardiography was performed at the end of the procedure. There was no pericardial effusion. No mass in the left atrial appendage. MMODL / IJN: [id number] /
[2020-04-05 03:25] VITALS: TEMP 97.9
[2020-04-05] MEDS: APIXABAN 5 MG TAB PO SCH (08:06)
[2020-04-05] MEDS: METOPROLOL TARTRATE 50 MG TAB PO SCH (08:07)
[2020-04-05] MEDS ORDERED: lisinopriL 20 MG TAB PO SCH (09:00)
[2020-04-05] MEDS ORDERED: ASPIRIN 81 MG PO SCH (09:00)
[2020-04-05] MEDS ORDERED: CLOPIDOGREL 75 MG TAB PO SCH (09:00)
--- NOTE | 2020-04-05 09:55 | P.DS ---
Providers Attending physician: Sid Shore Primary care physician: Stated None Hospital Course: Patient is doing well. He is ablating around in the room. There is minimal tenderness and minimal swelling in both groins Normal heart sounds normal S1 normal S2 Breath sounds are clear Telemetry shows sinus rhythm Twelve-lead ECG is normal Afebrile 97.9 degrees Fahrenheit, blood pressure 106/62 mmHg pulse rate in the 60s Normal respirations He denies any chest discomfort dizziness lightheadedness or palpitations Diagnosis Typical atrial flutter Status post successful ablation History of CAD and cardiac stenting History of hypertension Plan Continue all medications without changes including ELIQUIS Discharge home and follow with Dr. Franco Plan - Discharge Summary Discharge Rx Participant: No New Discharge Prescriptions: Continue lisinopriL 40 mg PO DAILY Apixaban [Eliquis] 5 mg PO BID Aspirin 81 mg PO DAILY #30 chew Metoprolol Tartrate [Lopressor] 50 mg PO TID tab Clopidogrel [Plavix] 75 mg PO DAILY #30 tab Nitroglycerin Sl Tabs [Nitrostat] 0.4 mg SUBLINGUAL Q5M PRN #25 tab PRN Reason: Chest Pain Atorvastatin [Lipitor] 80 mg PO HS #90 tab Discharge Medication List lisinopriL 40 mg PO DAILY 08/01/14 [History] Apixaban [Eliquis] 5 mg PO BID 09/07/19 [History] Aspirin 81 mg PO DAILY #30 chew 01/14/20 [Rx] Clopidogrel [Plavix] 75 mg PO DAILY #30 tab 01/14/20 [Rx] Metoprolol Tartrate [Lopressor] 50 mg PO TID tab 01/14/20 [Rx] Nitroglycerin Sl Tabs [Nitrostat] 0.4 mg SUBLINGUAL Q5M PRN #25 tab 01/29/20 [Rx] Atorvastatin [Lipitor] 80 mg PO HS #90 tab 04/05/20 [Rx] Follow up Appointment(s)/Referral(s): Ernie Gimenez MD [STAFF PHYSICIAN] - 1 Week Activity/Diet/Wound Care/Special Instructions: Post EP study - Ablation instructions 1. Keep access sites dry for 2 days. 2. No heavy lifting or straining for 2 days. 3. Avoid bending the hips repeatedly for 2 days. 4. You may go up and down stairs slowly Call if the following is noted 1. Bleeding, increasing swelling or pain at the access sites. 2. Increasing chest discomfort, especially upon taking a deep breath. 3. Increasing shortness of breath, at rest or with exertion. 4. Undue cough / phlegm 5. Difficulty or pain while swallowing. 6. Pain or change in color in the extremities. 7. Fever, chills, rigors. 8. Increasing headache or neurologic symptoms. 9. Dizziness, fainting, palpitations Discharge Disposition: HOME SELF-CARE
[2020-04-05 10:20] VITALS: BP 123/76; PULSE 57; RESP 14
== END 2020-04-05 12:17 | disposition home or self-care (01) ==
LOC: CATHEP 13:03 → 3NCARDOBS 17:31 → CATHEP 04-05 12:17
PROVIDERS: ATTEND Internal Medicine Clinical Cardiac Electrophysiology
DX: I48.3 Typical atrial flutter (principal); R00.0 Tachycardia, unspecified; I44.1 Atrioventricular block, second degree; I25.10 Atherosclerotic heart disease of native coronary artery without angina pectoris; I10 Essential (primary) hypertension; F17.200 Nicotine dependence, unspecified, uncomplicated; Z95.5 Presence of coronary angioplasty implant and graft; Z79.899 Other long term (current) drug therapy; Z79.01 Long term (current) use of anticoagulants; Z79.82 Long term (current) use of aspirin; Z79.02 Long term (current) use of antithrombotics/antiplatelets
CPT/HCPCS: 93656; 93623; 93613; C1894; C1769 ×3; C1730; C1759; C1893; C1732; J2250; J2710; J2001; J3010; J1644; J0131; J2704

== ENCOUNTER → 2024-10-07 | Outpatient (CLI) | payer OTHER ==
[2024-10-07 18:25] LABS: ALT 21 U/L (10-49); AST 23 U/L (14-35); Chol/HDL Ratio 3.31 Ratio; LDL Cholesterol,Calculated 128.2 mg/dL (0.0-131.0); VLDL Calculation 17.04 mg/dL (5.00-40.00)
== END | disposition home or self-care (01) ==
LOC: LABWHC1 12:59
PROVIDERS: ATTEND Internal Medicine Cardiovascular Disease
DX: E78.2 Mixed hyperlipidemia (principal)
CPT/HCPCS: 36415; 80061; 84450; 84460